=== PATIENT | female | born 1955 | race Caucasian/White ===

== ENCOUNTER 2017-06-02 15:49 | Emergency (ER) | payer MEDICAID ==
[~2017-06-02] VITALS: Ht 154.9 cm; Wt 73.2 kg
[2017-06-02 15:51] VITALS: BP 161/85
[2017-06-02] MEDS ORDERED: LIDOCAINE 1%, 20ML ONE (16:18)
[2017-06-02] MEDS ORDERED: LIDOCAINE 2%, 20ML SQ ONE (16:30)
== END 2017-06-02 17:39 | disposition home or self-care (01) ==
LOC: ED 17:00
DX: S92.515A Nondisplaced fracture of proximal phalanx of left lesser toe(s), initial encounter for closed fracture (principal); Z88.5 Allergy status to narcotic agent; Z88.8 Allergy status to other drugs, medicaments and biological substances; Z88.1 Allergy status to other antibiotic agents; W22.03XA Walked into furniture, initial encounter; Y93.89 Activity, other specified; Y92.098 Other place in other non-institutional residence as the place of occurrence of the external cause; Y99.8 Other external cause status
CPT/HCPCS: 28515

== ENCOUNTER 2018-09-05 11:53 | Emergency (ER) | payer MEDICAID ==
[~2018-09-05] VITALS: Ht 157.5 cm; Wt 79.6 kg
[2018-09-05] MEDS ORDERED: METHOCARBAMOL 750 MG TABLET ONE (12:21)
[2018-09-05] MEDS: METHOCARBAMOL 500 MG TABLET PO ONE ×4 (12:30→12:51)
[2018-09-05] MEDS ORDERED: KETOROLAC 30 MG/1 ML ONE (13:17)
[2018-09-05] MEDS ORDERED: KETOROLAC 30 MG/1 ML IM ONE (13:30)
[2018-09-05 14:53] VITALS: BP 122/68
== END 2018-09-05 14:55 | disposition home or self-care (01) ==
LOC: ED 13:28
DX: G24.3 Spasmodic torticollis (principal); M25.511 Pain in right shoulder; M54.2 Cervicalgia; Z87.891 Personal history of nicotine dependence
CPT/HCPCS: 72050; 73030; 93005; 96372; 99283; J1885